=== PATIENT | male | born 1960 | race Caucasian/White ===

== ENCOUNTER 2016-12-06 19:06 | Emergency (ER) | payer BC ==
[~2016-12-06] VITALS: Ht 180.3 cm; Wt 129.5 kg
[2016-12-06 19:07] VITALS: BP 169/95
[2016-12-06] MEDS ORDERED: LIDOCAINE 1%, 20ML SQ ONE (19:30)
[2016-12-06] MEDS ORDERED: LIDOCAINE 1%, 20ML ONE (19:31)
[2016-12-06] MEDS ORDERED: LISI2.5T PO (19:35)
[2016-12-06] MEDS ORDERED: BACITRACIN ZINC OINT 500U/GM, 0.9 GM ONE (20:38)
== END 2016-12-06 21:04 | disposition home or self-care (01) ==
LOC: ED 21:01
DX: S61.212A Laceration without foreign body of right middle finger without damage to nail, initial encounter (principal); W18.00XA Striking against unspecified object with subsequent fall, initial encounter; Y93.89 Activity, other specified; Y92.89 Other specified places as the place of occurrence of the external cause; Y99.8 Other external cause status
CPT/HCPCS: 12001